=== PATIENT | female | born 1955 | race Caucasian/White ===

== ENCOUNTER 2022-04-13 21:48 | Inpatient (IN) | payer MEDICARE, SELFPAY ==
[2022-04-13 21:49] VITALS: BP 136/100; PULSE 96; RESP 21; TEMP 37.5; O2SAT 97; BMI 30.9
[2022-04-13 23:14] LABS: Microscopic, Urine URINE MICROSCOPIC (MICROSCOPIC)
[2022-04-13 23:34] LABS: Lactic Acid 1.9 mmol/L (0.7-2.1)
[2022-04-13 23:45] LABS: Basophils # 0.2 K/mm3 (0-0.2); Basophils % 0.8 % (0.1-2.0); Eosinophils % 0.1 % (0.1-12.0); Hematocrit 51.9 % (37.0-47.0); Hemoglobin 16.7 g/dL (12.2-16.2); Lymphocytes # 1.5 K/mm3 (0.7-4.5); Lymphocytes % 7.3 % (10-50); Mean Corpuscular HGB Conc 32.3 g/dL (31.8-35.4); Mean Corpuscular Hemoglobin 30.3 pg (27.0-31.2); Mean Corpuscular Volume 93.8 fl (81-99); Mean Platelet Volume 7.6 fl (7.4-10.4); Monocytes # 0.9 K/mm3 (0.1-1.0); Monocytes % 4.2 % (1.7-9.3); Neutrophils % 87.7 % (37.0-80.0); Platelet Count 408 K/mm3 (142-424); Red Blood Count 5.53 M/mm3 (4.20-5.40); Red Cell Distribution Width 14.1 % (11.5-17.5); White Blood Count 20.5 K/mm3 (4.8-10.8)
[2022-04-13 23:46] VITALS: BP 171/86; PULSE 90; O2SAT 93
[2022-04-13 23:48] LABS: Appearance,Urine CLEAR (Clear); Blood, Urine Negative (Negative); Color,Urine YELLOW (Yellow); Glucose,Urine (UA) Negative (Negative); Ketones,Urine 1+ (Negative); Leukocyte Esterase,Urine Negative (Negative); Nitrate,Urine Negative (Negative); Protein,Urine TRACE (Negative); Specific Gravity, Urine >= 1.030 (1.005-1.030); Urobilinogen,Urine 0.2 EU/dl (0.2)
[2022-04-13 23:49] LABS: Alanine Aminotransferase 35 U/L (12-78); Albumin Level 4.7 g/dl (3.5-5.0); Albumin/Globulin Ratio 1.3 (1.1-1.8); Alkaline Phosphatase 123 U/L (38-126); Amylase 68 U/L (30-110); Aspartate Amino Transferase 33 U/L (14-36); Bilirubin,Total 0.7 mg/dl (0.2-1.3); Blood Urea Nitrogen 15 mg/dl (7-17); Calcium 9.6 mg/dl (8.4-10.2); Carbon Dioxide 25 mmol/L (22.0-30.0); Chloride 103 mmol/L (98-107); Creatinine Clearance Estimated 69 mL/min (50-200); Estimated Glomerular Filt Rate 62 ml/min (>60); GFR (African American) 75 ML/MIN (>60); Globulin 3.7 g/dL (1.3-3.2); Glucose 140 mg/dl (74-100); Lipase 72 U/L (23-300); Sodium 138 mmol/L (136-145); Total Protein,Serum 8.4 g/dl (6.3-8.2)
[2022-04-14] VITALS (29 sets, daily range): BP systolic 105–173; BP diastolic 51–85; PULSE 65–89; RESP 14–20; TEMP 36.5–43; O2SAT 89–96; BMI 30.7
--- NOTE | 2022-04-14 | CT_ITS ---
PROCEDURE INFORMATION: Exam: CT Abdomen And Pelvis With Contrast Exam date and time: 04/14/2022 12:07 AM Age: 66 years old Clinical indication: Abdominal pain; Localized; Lower; Prior surgery; Patient HX: HX ovarian cancer; Additional info: Low abd pain w n/v TECHNIQUE: Imaging protocol: Computed tomography of the abdomen and pelvis with contrast. Radiation optimization: All CT scans at this facility use at least one of these dose optimization techniques: automated exposure control; mA and/or kV adjustment per patient size (includes targeted exams where dose is matched to clinical indication); or iterative reconstruction. Contrast material: ISOVUE; Contrast volume: 75 ml; Contrast route: IV; COMPARISON: No relevant prior studies available. FINDINGS: Lungs: Dependent atelectasis and scarring. Heart: There are calcifications within the coronary arteries. Diaphragm: Sliding hiatal hernia. Liver: Liver is diffusely hypoattenuating but without focal lesion. Gallbladder and bile ducts: Normal. No calcified stones. No ductal dilation. Pancreas: Normal. No ductal dilation. Spleen: Normal. No splenomegaly. Adrenal glands: Normal. No mass. Kidneys and ureters: Normal. No hydronephrosis. Stomach and bowel: The vermiform appendix is identified extending from the cecum the right lower quadrant to the midline pelvis where it terminates. The appendix measures approximately 18 mm in greatest cross section and there is extensive surrounding inflammatory stranding, haziness and fluid. No free air to suggest perforation. No focal fluid collection to suggest abscess. There is mucosal thickening within the subjacent loops of bowel within the lower mid abdomen, reactive. Mild diverticulosis of the large bowel. No evidence of diverticulitis. Appendix: The vermiform appendix is identified extending from the cecum the right lower quadrant to the midline pelvis where it terminates. The appendix measures approximately 18 mm in greatest cross section and there is extensive surrounding inflammatory stranding, haziness and fluid. No free air to suggest perforation. No focal fluid collection to suggest abscess. There is mucosal thickening within the subjacent loops of bowel within the lower mid abdomen, reactive Intraperitoneal space: The vermiform appendix is identified extending from the cecum the right lower quadrant to the midline pelvis where it terminates. The appendix measures approximately 18 mm in greatest cross section and there is extensive surrounding inflammatory stranding, haziness and fluid. No free air to suggest perforation. No focal fluid collection to suggest abscess. There is mucosal thickening within the subjacent loops of bowel within the lower mid abdomen, reactive. Vasculature: There are calcifications within the aorta and its branches. Lymph nodes: Unremarkable. No enlarged lymph nodes. Urinary bladder: Unremarkable as visualized. Reproductive: Unremarkable as visualized. Bones/joints: Skeletal structures are negative for evidence of aggressive process or acute fracture. There are mild diffuse degenerative changes. Soft tissues: Unremarkable. IMPRESSION: 1. Acute appendicitis. No evidence of perforation or abscess. 2. Sliding hiatal hernia. 3. Hepatic steatosis. 4. Mild diverticulosis of the large bowel. No evidence of diverticulitis.
[2022-04-14 00:14] LABS: Bilirubin,Urine 1+ (Negative)
[2022-04-14 00:15] LABS: MANUAL DIFFERENTIAL MANUAL DIFFERENTIAL (MANUAL DIFF)
[2022-04-14 00:52] LABS: Bacteria,Urine Trace /lpf
--- NOTE | 2022-04-14 02:05 | PC.NURSE ---
Dr. Banuelos s/w ALVARADOAD
--- NOTE | 2022-04-14 02:08 | PC.NURSE ---
Dr. Berg s/w Dr. Minor
--- NOTE | 2022-04-14 02:08 | HMH.EDNVD ---
ED Disposition Clinical Impression: Acute appendicitis Qualifiers: Acute appendicitis type: unspecified acute appendicitis type Qualified Code(s): K35.80 - Unspecified acute appendicitis Disposition: Admitted As Inpatient Condition on Discharge: Serious Instructions: DI for Acute Abdominal Pain Referrals: Chantelle Hadley APRN [Primary Care Provider] - - Critical Care Critical Care Time: No Attestation: On 04/13/22, the high probability of a clinically significant, sudden or life threatening deterioration of the following system(s) required my full and direct attention, intervention and personal management. The time I documented below is in addition to time spent performing reported procedures but includes the following listed in this critical care notation. Medical Decision Making - Medical Records Medical records reviewed: Yes: I reviewed the patient's medical records. - Catarino Inquiry Pt receiving controlled substance: No Vital Signs: 04/13/22 21:49 04/13/22 23:46 04/14/22 00:00 Temperature 99.5 F Temperature Source Oral Pulse Rate 90 87 Pulse Rate [Right] 96 H Respiratory Rate 21 Blood Pressure 171/86 H 153/56 H Blood Pressure [Right Arm] 136/100 H Blood Pressure Mean 89 Blood Pressure Mean [Right Arm] 112 Blood Pressure Source [Right Arm] Manual Cuff/ Auscultation 02 Sat by Pulse Oximetry 97 93 L 93 L Oxygen Delivery Method Room Air Room Air 04/14/22 00:30 04/14/22 01:00 04/14/22 01:30 Temperature Temperature Source Pulse Rate 85 84 65 Pulse Rate [Right] Respiratory Rate Blood Pressure 141/70 H 130/68 147/64 H Blood Pressure [Right Arm] Blood Pressure Mean 83 87 90 Blood Pressure Mean [Right Arm] Blood Pressure Source [Right Arm] 02 Sat by Pulse Oximetry 95 94 L 94 L Oxygen Delivery Method Room Air 04/14/22 02:00 Temperature Temperature Source Pulse Rate 84 Pulse Rate [Right] Respiratory Rate Blood Pressure 135/76 Blood Pressure [Right Arm] Blood Pressure Mean 100 Blood Pressure Mean [Right Arm] Blood Pressure Source [Right Arm] 02 Sat by Pulse Oximetry 95 Oxygen Delivery Method Room Air - Lab Data Lab results reviewed: Yes: I reviewed the patient's lab results. Lab Results 04/13/22 22:50: Urine Color Yellow, Urine Appearance Clear, Urine pH 6.0, Ur Specific [place] >= 1.030, Urine Protein Trace, Urine Glucose (UA) Negative, Urine Ketones 1+, Urine Blood Negative, Urine Nitrate Negative, Urine Bilirubin 1+ A, Urine Urobilinogen 0.2, Ur Leukocyte Esterase Negative, Urine RBC None, Urine WBC 3-5, Ur Squamous Epith Cells 3-5, Urine Bacteria Trace 04/13/22 23:15: WBC 20.5 H*, RBC 5.53 H, Hgb 16.7 H, Hct 51.9 H, MCV 93.8, MCH 30.3, MCHC 32.3, RDW 14.1, Plt Count 408, MPV 7.6, Neut % (Auto) 87.7 H, Lymph % (Auto) 7.3 L, [place] % (Auto) 4.2, Eos % (Auto) 0.1, Baso % (Auto) 0.8, Neut # (Auto) 18.0 H, Lymph # (Auto) 1.5, [place] # (Auto) 0.9, Eos # (Auto) 0.0, Baso # (Auto) 0.2 04/13/22 23:15: Sodium 138, Potassium 4.0, Chloride 103, Carbon Dioxide 25, Anion Gap 14.0, BUN 15, Creatinine 0.90, Estimated Creat Clear 69, Estimated GFR 62, Est GFR ( Amer) 75, Glucose 140 H, Calcium 9.6, Total Bilirubin 0.7, AST 33, ALT 35, Alkaline Phosphatase 123, C-Reactive Protein Cancelled, Total Protein 8.4 H, Albumin 4.7, Globulin 3.7 H, Albumin/Globulin Ratio 1.3, Amylase 68, Lipase 72, Procalcitonin Cancelled 04/13/22 23:15: Lactate 1.9 Result diagrams: 04/13/22 23:15 04/13/22 23:15 Orders (Tests/Meds): ED MEDICATIONS Generic Name Dose Route Start Last Admin Trade Name Freq PRN Reason Stop Dose Admin Sodium Chloride 1,000 mls @ 999 mls/hr 04/13/22 23:15 04/13/22 23:23 Sod Chlor 0.9% 1000ml Bag IV 04/14/22 00:15 999 mls/hr .Q1H1M GIO Administration Sodium Chloride 1,000 mls @ 999 mls/hr 04/14/22 02:15 04/14/22 02:09 Sod Chlor 0.9% 1000ml Bag IV 04/14/22 03:15 999 mls/hr .Q1H1M GIO Administration Discontinued Medicatio
--- NOTE | 2022-04-14 02:13 | PC.NURSE ---
Dr. Banuelos s/w pt & spouse regarding ct and lab results.
[2022-04-14 02:15] LABS: Coronavirus 19, PCR Not Detected (NotDetected); Influenza A, PCR Not Detected (NotDetected); Influenza B, PCR Not Detected (NotDetected)
--- NOTE | 2022-04-14 02:22 | PC.NURSE ---
supervisor inspection notified on need for bed assignment. Dr. Minor will call house when he is ready for surgery team.
--- NOTE | 2022-04-14 02:23 | PC.NURSE ---
Pt changing into gown and given socks. She took her wedding ring off and gave to , who placed in her red purse. it taking red purse home. Only valuable at bedside is pt's eye glasses. Pt given belongings bag.
--- NOTE | 2022-04-14 02:25 | XR_ITS ---
PROCEDURE INFORMATION: Exam: XR Chest Exam date and time: 04/14/2022 2:38 AM Age: 66 years old Clinical indication: Pre-operative exam; Cardiovascular screening and respiratory screening exam; Additional info: Pre op TECHNIQUE: Imaging protocol: Radiologic exam of the chest. Views: 1 view. COMPARISON: CT ABDOMEN PELVIS W CON 04/14/2022 12:07 AM FINDINGS: Lungs: Atelectasis versus infiltrate right lung base. Pleural spaces: Unremarkable. No pleural effusion. No pneumothorax. Heart/Mediastinum: Unremarkable. No cardiomegaly. Bones/joints: Unremarkable. IMPRESSION: Atelectasis versus infiltrate right lung base. Follow-up recommended to exclude malignancy.
--- NOTE | 2022-04-14 02:33 | ECG_ITS ---
APPROVED REPORT Exam: Resting ECG HR:93 bpm ECG Measurements Heart Rate 93 AXES NH 165 P 49 QRSd 93 QRS 23 QT 355 T 67 QTc 405 Conclusion SINUS RHYTHM LOW QRS VOLTAGE IN PRECORDIAL LEADS [QRS DEFLECTION < 1.0 mV IN CHEST LEADS] NONSPECIFIC ST & T-WAVE ABNORMALITY BORDERLINE ECG UNCONFIRMED REPORT Electronically signed by : Mert Steen MD 04/15/2022 17:58:37
--- NOTE | 2022-04-14 02:37 | PC.NURSE ---
Surgery team paged.
--- NOTE | 2022-04-14 02:55 | PC.NURSE ---
Dr. Minor at bedside
--- NOTE | 2022-04-14 03:07 | HMH.GSHP ---
HPI HPI: Patient is a 66-year-old female. She had developed some abdominal pain about 24 hours prior to presentation. Initially this seemed more in the left upper abdomen and mid abdomen. She had several episodes of vomiting. The pain persisted and became more severe in the lower abdomen. She presented to the emergency department. She underwent evaluation which revealed appreciable leukocytosis. She had a CT scan of the abdomen pelvis performed which revealed findings of vermiform appendix extending from the cecum to the right lower quadrant to the midline pelvis measuring 18 mm and greatest cross-section with extensive surrounding inflammatory stranding, haziness, and fluid. There was mucosal thickening of the adjacent loops of bowel within the lower and mid abdomen. Surgical consultation was obtained. [facility] History I have reviewed the patient's past medical history: Yes Medical History: Reports:: Cancer Denies:: Diabetes Mellitus Type 1, Diabetes Mellitus Type 2, Internal Pacemaker *Have you ever received a pneumonia vaccine?: No *Have you received a flu vaccine this season?: No Other Surgeries: No: Pacemaker Amputation: No Fractures: No - *Social History Last grade of school completed: High school graduate Smoking Status: Former smoker Alcohol Intake: current Alcohol Intake Frequency:: holidays/special occasions only *Occupational Status:: retired Housing: house Household Members: significant other *Travel in the last 8 weeks: None Family Hx:: Non-contributory Review of Systems - Review of Systems Review of systems:: pertinent systems reviewed and negative unless documented below - *Neurologic Denies seizure-like activity Meds Home Medications Medication Instructions Recorded Confirmed Type Amlodipine Besylate 10 mg PO DAILY 04/13/22 04/13/22 History Allergies Allergy/AdvReac Type Severity Reaction Status Date / Time No Known Allergies Allergy Verified 04/13/22 22:59 Exam Vital signs and Labs for Last 24 Hours: Temp Pulse Resp BP Pulse Ox 99.1 F 89 19 170/73 H 96 04/14/22 02:58 04/14/22 02:58 04/14/22 02:58 04/14/22 02:58 04/14/22 02:31 Laboratory Results - last 24 hr 04/13/22 22:50: Urine Color Yellow, Urine Appearance Clear, Urine pH 6.0, Ur Specific [place] >= 1.030, Urine Protein Trace, Urine Glucose (UA) Negative, Urine Ketones 1+, Urine Blood Negative, Urine Nitrate Negative, Urine Bilirubin 1+ A, Urine Urobilinogen 0.2, Ur Leukocyte Esterase Negative, Urine RBC None, Urine WBC 3-5, Ur Squamous Epith Cells 3-5, Urine Bacteria Trace 04/13/22 23:15: WBC 20.5 H*, RBC 5.53 H, Hgb 16.7 H, Hct 51.9 H, MCV 93.8, MCH 30.3, MCHC 32.3, RDW 14.1, Plt Count 408, MPV 7.6, Neut % (Auto) 87.7 H, Lymph % (Auto) 7.3 L, [place] % (Auto) 4.2, Eos % (Auto) 0.1, Baso % (Auto) 0.8, Neut # (Auto) 18.0 H, Lymph # (Auto) 1.5, [place] # (Auto) 0.9, Eos # (Auto) 0.0, Baso # (Auto) 0.2 04/13/22 23:15: Sodium 138, Potassium 4.0, Chloride 103, Carbon Dioxide 25, Anion Gap 14.0, BUN 15, Creatinine 0.90, Estimated Creat Clear 69, Estimated GFR 62, Est GFR ( Amer) 75, Glucose 140 H, Calcium 9.6, Total Bilirubin 0.7, AST 33, ALT 35, Alkaline Phosphatase 123, C-Reactive Protein Cancelled, Total Protein 8.4 H, Albumin 4.7, Globulin 3.7 H, Albumin/Globulin Ratio 1.3, Amylase 68, Lipase 72, Procalcitonin Cancelled 04/13/22 23:15: Lactate 1.9 04/14/22 02:00: SARS-CoV-2 (PCR) Not detected, Influenza A Untype (PCR) Not detected, Influenza Type B (PCR) Not detected I & O for Last 24 hours: Intake & Output 04/11/22 04/12/22 04/13/22 04/14/22 11:59 11:59 11:59 11:59 Intake Total 1500 / 1500 Balance 1500 / 1500 Weight 180 lb - Constitutional no acute distress - *Routine HEENT Exam Head: Present: normocephalic Eye: Present: EOMI, PERRL ENT: Present: mucous membranes moist - *Routine Neck Exam Present: supple. Absent: lymphadenopathy - *Routine Respiratory Exam Present: CTA bilaterally
[2022-04-14 03:10] LABS: Hypochromasia 2+; Lymphocytes % 11 % (10-50); Monocytes % 4 % (2-9); Neutrophils % 85 % (42-76); Platelet Estimate Normal; Stomatocytes 1+; Total Cells Counted 100
--- NOTE | 2022-04-14 03:18 | PC.NURSE ---
Surgery RN & Anesthesia at bedside.
--- NOTE | 2022-04-14 03:52 | HMH.ANESCL ---
[facility] Anesthesia Checklist - Patient Identification Patient Identification: Arm Band - Structural Data Admitted From: Emergency Dept Planned Operative Procedure/s: Lap/ appendectomy Consent for Planned Operative Procedure(s) Verified: Yes - NPO Status Verified Time NPO: 04:00 - Airway Assessment C-Spine Mobility Assessed: Yes TMJ Mobility Assessed: Yes Dentition: Good Dentition - Neurological Assessment Level of Consciousness: Awake Hx Seizures: No Numbness or tingling in extremities: No - Anesthesia Plan Anesthesia Risk discussed: Yes Anesthesia Plan: Verified ASA Class: II (II E) Anesthesia Type: General [facility] History I have reviewed the patient's past medical history: Yes Medical History: Reports:: Cancer, Hypertension Denies:: Diabetes Mellitus Type 1, Diabetes Mellitus Type 2, Internal Pacemaker *Have you ever received a pneumonia vaccine?: No *Have you received a flu vaccine this season?: No Anesthesia experience/problems:: None Other Surgeries: No: Pacemaker Amputation: No Fractures: No - *Social History Last grade of school completed: High school graduate Smoking Status: Former smoker Alcohol Intake: current Alcohol Intake Frequency:: holidays/special occasions only Substance Use Type: denies use *Occupational Status:: retired Housing: house Household Members: significant other *Travel in the last 8 weeks: None Family Hx:: Non-contributory
--- NOTE | 2022-04-14 04:49 | SUR.OPER ---
0438-decision was made to convert to open appendectomy, all counts verified and correct per [facility] and KIRAN Oliva prior to open incision made 044-incision for open appendectomy at this time 044-pt's called and updated at this time
--- NOTE | 2022-04-14 07:07 | HMH.OPNOTE ---
Date of procedure: 04/14/22 Pre-op Diagnosis:: Acute appendicitis Post-op Diagnosis:: Same Procedure performed:: Diagnostic laparoscopy Open appendectomy Completion laparoscopy Surgeon:: Jonathan Minor MD REHAB DEPARTMENT MANAGER:: Daniele Fulton Anesthesia: GETA Estimated blood loss (mL): 20 Operative findings:: Patient had evidence of some established peritonitis. There was purulent fluid in the pelvis and right pericolic gutter. There is some edema and induration of peritoneum and small bowel. Appendix was incredibly densely adherent to the deep abdomen and pelvis. Operative note:: Consent was obtained and patient was taken the operating room. She was given preoperative intravenous antibiotics. In the operating room she was placed in a supine position. General anesthesia was induced via endotracheal tube. Gaytan catheter was placed. Abdomen was prepped and draped in the standard surgical fashion. Subumbilical skin incision was made while performing abdominal wall lift Veress needle was inserted. CO2 pneumoperitoneum was achieved to 15 mmHg. 12 mm optical trocar was inserted at the umbilicus. Abdominal surveillance was carried out. There is some induration edema and erythema of the peritoneum and small bowel. There was cloudy fluid in the pelvis. 5 mm trocar was inserted in the suprapubic location. Fluid was suctioned free. Additional 5 mm trocar was inserted in the right upper abdomen. 5 mm 30 degree laparoscope was inserted. Dissection was carried out near the cecum. There were adhesions to the anterior abdominal wall of the colon. To attempt to locate and isolate the appendix these were taken down using laparoscopic Metzenbaum dissection. Extremely prolonged dissection was carried out and ultimately the base of the appendix was identified. The appendix was grasped with an endoscopic Herman. After additional exhaustive dissection the appendix was unable to be delivered as it was densely adherent deep into the lower mid and right abdominal area. Decision was then made to convert to open procedure. McBurney's type incision was made. Dissection was carried down through subcutaneous tissues and Jw's fascia. The external bleak muscle was opened along the length of its fibers. Muscle-splitting technique was used opening the internal oblique and transversalis muscles. Exposure was rather difficult due to the patient's body habitus and inflammatory response. Ultimately the appendix base was able to be identified. This was slowly dissected free but it was incredibly and and densely adherent into the deep abdomen. Attempts were made for blunt dissection delivery. There was then noted to be an appendicolith. There was concern that there may be a colon injury. Other dissection was carried out slowly dissecting the densely adherent appendix free. The appendiceal artery was clipped with a Hemoclip and sharply divided. The midportion of the appendix then a avulsed from the distal appendix as there is evidence of necrosis. It was felt that this appendicolith which was noted where there was a concern for possible colon injury was likely ruptured appendix. The remainder the appendix was identified and densely adherent into the deep abdomen. It was ultimately able to be delivered. The appendix which was still attached to the cecum was then clamped with a crushing clamp and then doubly ligated at its base which was relatively uninflamed surprisingly with a couple of 2-0 silk sutures. Appendiceal stump was cauterized judiciously. Cecum was returned to the peritoneal cavity. Decision was made to close the McBurney's incision as exposure was quite difficult and proceed with laparoscopic surveillance to rule out colon injury. Peritoneum was closed with a running 2-0 Vicryl. Fascial layers were closed with running 2-0 PDS. Irrigation was performed between layers. Jw's fascia was closed with a running 2-0 Vicryl. Skin was closed with sim. C
--- NOTE | 2022-04-14 07:14 | HMH.ANESI ---
[facility] Anesthesia Record Part I Intake, IV Amount: 2,000 Estimated blood loss (mL): 20 Urine output (mL): 0 Blood Pressure: 121/71 SaO2: 93 Pulse Rate: 83 Respiratory Rate: 20 Temperature: 98.4 F Patient is:: Drowsy, Oral/Nasal airway Stable to PACU at:: 07:09
--- NOTE | 2022-04-14 10:12 | SUR.OPER ---
late entry.... 5149-pt's called and updated at this time that pt was out of surgery and in recovery room
--- NOTE | 2022-04-14 10:28 | HMH.PHAVTE ---
[facility] Pharmacy VTE Monitoring - Patient Demographics Admission date: 04/14/22 Report Date: 04/14/22 Time: 10:28 Allergies/Adverse Reactions: Patient Allergies No Known Allergies Allergy (Verified 04/14/22 04:48) Height: 1.63 m Weight: 81.647 kg Patient Problems: Current Active Problems Acute appendicitis (Acute) - VTE Risk Labs: VTE Related Lab Results Hgb 16.7 g/dL (12.2-16.2) H 04/13/22 23:15 Hct 51.9 % (37.0-47.0) H 04/13/22 23:15 Plt Count 408 K/mm3 (142-424) 04/13/22 23:15 BUN 15 mg/dl (7-17) 04/13/22 23:15 Creatinine 0.90 mg/dl (0.52-1.04) 04/13/22 23:15 Estimated Creat Clear 69 mL/min (50-200) 04/13/22 23:15 Clinical Trial Participant: No - Prophylaxis VTE Prophylaxis Ordered?: Yes Types of VTE Prophylaxis: TEDS Knee High Location of Applied Device: Bilateral Lower Extremeties
[2022-04-14 15:33] LABS: Microscopic,Cath URINE MICROSCOPIC (MICROSCOPIC)
[2022-04-14 15:41] LABS: Appearance,Urine/Cath CLEAR (Clear); Bilirubin,Cath Negative (Negative); Blood, Urine/Cath Negative (Negative); Color,Urine/Cath YELLOW (Yellow); Glucose,Urine/Cath (UA) Negative (Negative); Ketones,Urine/Cath Negative (Negative); Leukocyte Esterase,Cath Negative (Negative); Nitrate,Cath Negative (Negative); PH,Urine/Cath 5.5 (5.0-8.5); Protein,Urine/Cath TRACE (Negative); Specific Gravity, Urine/Cath 1.025 (1.005-1.030); Urobilinogen,Cath 0.2 EU/dl (0.2)
--- NOTE | 2022-04-14 18:26 | PC.NURSE ---
pt A&OX4. 4 abdominal dressing sites, all are CDI. Bowel sounds are present in all 4 quads, no reports of passing flatus this shift, no BMs this shift. pt is NPO except sips and chips and is tolerating that well. pain has been reported a few times and has been relieved with medication. pt is ambulating to and from bathroom with minimal assistance. pt was educated on incentive spirometer use and has demonstrated appropriate use. is at bedside, call light is in reach, bed in lowest position and wheels are locked.
[2022-04-15] VITALS: BP 123/66; PULSE 82; RESP 20; TEMP 37.3; O2SAT 94
[2022-04-15 04:00] VITALS: BP 135/64; PULSE 83; RESP 20; TEMP 36.9; O2SAT 90
[2022-04-15 04:25] VITALS: BMI 30.9
--- NOTE | 2022-04-15 04:43 | PC.NURSE ---
Pt is alert and oriented x4, has ambulated to the bathroom with standby assist, pt states she is passing gas, no BM, good urine output. Bowel sounds active x4. 4 incision cites, dressings CDI. Pt has complained of pain 2 times this shift, treated prn per mar. Pt has been sleeping for a majority of the night, other than using the bathroom. Pt has no new complaints.
[2022-04-15 06:36] LABS: Basophils # 0.1 K/mm3 (0-0.2); Basophils % 0.7 % (0.1-2.0); Eosinophils % 0.1 % (0.1-12.0); Hematocrit 39.4 % (37.0-47.0); Hemoglobin 12.4 g/dL (12.2-16.2); Lymphocytes # 1.7 K/mm3 (0.7-4.5); Mean Corpuscular HGB Conc 31.6 g/dL (31.8-35.4); Mean Corpuscular Hemoglobin 30.8 pg (27.0-31.2); Mean Corpuscular Volume 97.6 fl (81-99); Mean Platelet Volume 8.1 fl (7.4-10.4); Monocytes # 0.6 K/mm3 (0.1-1.0); Monocytes % 4.2 % (1.7-9.3); Neutrophils # 11.8 K/mm3 (1.8-7.8); Platelet Count 297 K/mm3 (142-424); Red Blood Count 4.03 M/mm3 (4.20-5.40); Red Cell Distribution Width 14.1 % (11.5-17.5); White Blood Count 14.2 K/mm3 (4.8-10.8)
[2022-04-15 08:00] VITALS: BP 141/81; PULSE 95; RESP 18; TEMP 37.5; O2SAT 93
--- NOTE | 2022-04-15 08:00 | P.PN_ITS ---
[facility] Anesthesia Record Part II Discharge Time: 07:59 Destination: Intensive Care Unit PACU nurse assessment reviewed?: Yes Patient Condition:: Serious Anesthesia Complications:: None Swallowing reflex intact?: Yes Cyanosis?: No Blood Pressure: 148/85 Pulse Rate: 86 Temperature: 97 F Mental Status: Alert & Oriented Pain level:: 0 Nausea and/or vomitting:: None Intake, IV Amount: 0
[2022-04-15 08:01] VITALS: BP 148/85; PULSE 86; TEMP 36.1
--- NOTE | 2022-04-15 08:06 | HMH.GSPN ---
Subjective Patient reports: no new complaints, flatus, no bowel movement Progress Note: A&P (1) Acute appendicitis Status: Acute Assessment and plan: Overall, doing well status post laparoscopic/[id number] appendectomy. Clear liquid diet Continue antibiotics for now (established peritonitis) Exam Vital signs and Labs for Last 24 Hours: Temp Pulse Resp BP Pulse Ox 97 F L 86 20 148/85 H 90 L 04/15/22 08:01 04/15/22 08:01 04/15/22 04:00 04/15/22 08:01 04/15/22 04:00 Laboratory Results - last 24 hr 04/14/22 03:30: Urine Color Yellow, Urine Appearance Clear, Urine pH 5.5, Ur Specific [place] 1.025, Urine Protein Trace, Urine Glucose (UA) Negative, Urine Ketones Negative, Urine Blood Negative, Urine Nitrate Negative, Urine Bilirubin Negative, Urine Urobilinogen 0.2, Ur Leukocyte Esterase Negative, Urine RBC None, Urine WBC 3-5, Ur Squamous Epith Cells 5-10, Urine Bacteria None 04/15/22 06:16: WBC 14.2 H D, RBC 4.03 L D, Hgb 12.4, Hct 39.4, MCV 97.6, MCH 30.8, MCHC 31.6 L, RDW 14.1, Plt Count 297 D, MPV 8.1, Neut % (Auto) 83.0 H, Lymph % (Auto) 12.0, [place] % (Auto) 4.2, Eos % (Auto) 0.1, Baso % (Auto) 0.7, Neut # (Auto) 11.8 H, Lymph # (Auto) 1.7, [place] # (Auto) 0.6, Eos # (Auto) 0.0, Baso # (Auto) 0.1 I & O for Last 24 hours: Intake & Output 04/12/22 04/13/22 04/14/22 04/15/22 11:59 11:59 11:59 11:59 Intake Total 3500 / 3500 240 / 240 Balance 3500 / 3500 240 / 240 Weight 180 lb 0.013 oz 181 lb 0.909 oz - Constitutional no acute distress - *Routine Respiratory Exam Absent: respiratory distress - *Routine Cardiovascular Exam Absent: tachycardia - *Routine Abdominal Exam Present: soft, tenderness Comments: No cellulitis
[2022-04-15 14:47] VITALS: BMI 30.9
[2022-04-15 16:00] VITALS: BP 157/65; PULSE 87; RESP 16; TEMP 36.9; O2SAT 92
--- NOTE | 2022-04-15 17:06 | PC.NURSE ---
Pt being transported to room 205 by Angelica Wolfe RN and Samir Howe, SRNA
--- NOTE | 2022-04-15 17:48 | PC.NURSE ---
pt A&OX4. ambulating in room independently. reports of pain but is relieved by medication. passing flatus, no BMs this shift, Bowel sounds present in all quads. 1 open abdominal incision, 3 laparoscopic incisions, all are ALEJO and CDI. tolerating clear liquid diet well. call light in reach, bed in lowest position and wheels locked.
[2022-04-15 20:00] VITALS: BP 145/67; PULSE 84; RESP 20; TEMP 37.3; O2SAT 92
[2022-04-16 04:00] VITALS: BP 135/52; PULSE 82; RESP 20; TEMP 36.9; O2SAT 92
[2022-04-16 05:00] VITALS: BMI 39.2
--- NOTE | 2022-04-16 06:34 | PC.NURSE ---
Pt has c/o abd pain 2x t/o shift. PRN pain medication administered. Pt able to walk to BR with standby assist. Call light within reach.
--- NOTE | 2022-04-16 07:21 | HMH.GSPN ---
Subjective Narrative: Patient states that she feels all right. No nausea. Tolerating clear liquids. Progress Note: A&P (1) Acute appendicitis Status: Acute Assessment and Plan for All Diagnoses:: Advance to full liquid diet. Continue IV antibiotics for now. Hopeful discharge soon Exam Vital signs and Labs for Last 24 Hours: Temp Pulse Resp BP Pulse Ox 98.5 F 82 20 135/52 L 92 L 04/16/22 04:00 04/16/22 04:00 04/16/22 04:00 04/16/22 04:00 04/16/22 04:00 I & O for Last 24 hours: Intake & Output 04/13/22 04/14/22 04/15/22 04/16/22 11:59 11:59 11:59 11:59 Intake Total 3500 / 3500 720 / 720 3772 / 3772 Balance 3500 / 3500 720 / 720 3772 / 3772 Weight 180 lb 0.013 oz 181 lb 0.909 oz 229 lb 12.8 oz Microbiology Reports for the Last 24 Hours: Microbiology 04/13/22 23:15 Blood Blood Culture - Preliminary NO GROWTH AFTER 48 HOURS - *Routine Abdominal Exam Present: soft Comments: Some bruising around all incisions
[2022-04-16 07:49] LABS: Basophils # 0.2 K/mm3 (0-0.2); Basophils % 1.3 % (0.1-2.0); Eosinophils # 0.1 K/mm3 (0.0-0.4); Hematocrit 37.9 % (37.0-47.0); Hemoglobin 11.8 g/dL (12.2-16.2); Lymphocytes # 2.2 K/mm3 (0.7-4.5); Lymphocytes % 16.5 % (10-50); Mean Corpuscular HGB Conc 31.2 g/dL (31.8-35.4); Mean Corpuscular Hemoglobin 30.2 pg (27.0-31.2); Mean Corpuscular Volume 96.6 fl (81-99); Monocytes # 0.6 K/mm3 (0.1-1.0); Monocytes % 4.7 % (1.7-9.3); Neutrophils # 10.2 K/mm3 (1.8-7.8); Neutrophils % 76.5 % (37.0-80.0); Platelet Count 321 K/mm3 (142-424); Red Blood Count 3.92 M/mm3 (4.20-5.40); White Blood Count 13.3 K/mm3 (4.8-10.8)
[2022-04-16 08:00] VITALS: BP 151/79; PULSE 81; RESP 17; TEMP 37.2; O2SAT 94
--- NOTE | 2022-04-16 10:26 | PC.NURSE ---
Rounded on pt and cleaned and straightened room. Pt up in chair and no needs voiced at this time.
--- NOTE | 2022-04-16 13:31 | PC.NURSE ---
rounded on patient. offered to assist her up to chair for lunch which she refused stating she had just gotten back to bed. stated she had no concerns or questions i feel like i have been here a while so i have a good understanding. no needs voiced encouraged her to ring out with any needs or questions.
[2022-04-16 15:34] VITALS: BP 155/68; PULSE 78; RESP 16; TEMP 37.6; O2SAT 95
--- NOTE | 2022-04-16 15:38 | PC.NURSE ---
Pt is A/OX4. She has been up between the chair and bed all day. Placed new IV this morning on pt she tolerated well. She was changed from clear liquid diet to full liquid diet and has tolerated well. No change since last assessment.
[2022-04-16 20:00] VITALS: BP 166/90; PULSE 84; RESP 16; TEMP 36.8; O2SAT 95
[2022-04-17 04:00] VITALS: BP 176/84; PULSE 88; RESP 16; TEMP 37.1; O2SAT 95
--- NOTE | 2022-04-17 04:13 | PC.NURSE ---
Patient has been A&o x4 this shift. Patient has expressed abd pain 2x thus far in shift medicated patient per mar. Patient has been ambulatory to the restroom with stand by assist. Patients abd incisions are open to air and noted to be CDI.
[2022-04-17 05:00] VITALS: BMI 39.6
[2022-04-17 06:41] LABS: Chloride 107 mmol/L (98-107); Sodium 140 mmol/L (136-145)
[2022-04-17 06:42] LABS: Potassium 3.2 mmoL/L (3.5-5.1)
[2022-04-17 06:45] LABS: Anion Gap 9.2 mEq/L (5-15); Basophils # 0.2 K/mm3 (0-0.2); Blood Urea Nitrogen 5 mg/dl (7-17); Calcium 8.6 mg/dl (8.4-10.2); Carbon Dioxide 27 mmol/L (22.0-30.0); Creatinine Clearance Estimated 90 mL/min (50-200); Eosinophils # 0.2 K/mm3 (0.0-0.4); Eosinophils % 1.8 % (0.1-12.0); Estimated Glomerular Filt Rate 83 ml/min (>60); GFR (African American) 101 ML/MIN (>60); Glucose 123 mg/dl (74-100); Hematocrit 36.4 % (37.0-47.0); Hemoglobin 11.6 g/dL (12.2-16.2); Lymphocytes % 18.4 % (10-50); Mean Corpuscular HGB Conc 31.9 g/dL (31.8-35.4); Mean Corpuscular Hemoglobin 29.7 pg (27.0-31.2); Mean Corpuscular Volume 93.3 fl (81-99); Mean Platelet Volume 7.9 fl (7.4-10.4); Monocytes # 0.6 K/mm3 (0.1-1.0); Monocytes % 5.2 % (1.7-9.3); Neutrophils # 8.1 K/mm3 (1.8-7.8); Neutrophils % 72.6 % (37.0-80.0); Platelet Count 369 K/mm3 (142-424); Red Cell Distribution Width 13.8 % (11.5-17.5); White Blood Count 11.1 K/mm3 (4.8-10.8)
[2022-04-17 08:00] VITALS: BP 142/83; PULSE 78; RESP 16; TEMP 36.8; O2SAT 95
--- NOTE | 2022-04-17 10:29 | P.PN_ITS ---
Subjective Narrative: Patient states that she feels better. Less soreness. Progress Note: A&P (1) Acute appendicitis Status: Acute Assessment and Plan for All Diagnoses:: Discharge home Exam Vital signs and Labs for Last 24 Hours: Temp Pulse Resp BP Pulse Ox 98.2 F 78 16 142/83 H 95 04/17/22 08:00 04/17/22 08:00 04/17/22 08:00 04/17/22 08:00 04/17/22 08:00 Laboratory Results - last 24 hr 04/17/22 06:10: Sodium 140, Potassium 3.2 L, Chloride 107, Carbon Dioxide 27, Anion Gap 9.2, BUN 5 L, Creatinine 0.70, Estimated Creat Clear 90, Estimated GFR 83, Est GFR ( Amer) 101, Glucose 123 H, Calcium 8.6 04/17/22 06:10: WBC 11.1 H, RBC 3.90 L, Hgb 11.6 L, Hct 36.4 L, MCV 93.3, MCH 29.7, MCHC 31.9, RDW 13.8, Plt Count 369, MPV 7.9, Neut % (Auto) 72.6, Lymph % (Auto) 18.4, [place] % (Auto) 5.2, Eos % (Auto) 1.8, Baso % (Auto) 2.0, Neut # (Auto) 8.1 H, Lymph # (Auto) 2.0, [place] # (Auto) 0.6, Eos # (Auto) 0.2, Baso # (Auto) 0.2 I & O for Last 24 hours: Intake & Output 04/14/22 04/15/22 04/16/22 04/17/22 11:59 11:59 11:59 11:59 Intake Total 3500 / 3500 720 / 720 4512 / 4512 2872 / 2872 Balance 3500 / 3500 720 / 720 4512 / 4512 2872 / 2872 Weight 180 lb 0.013 oz 181 lb 0.909 oz 229 lb 12.8 oz 232 lb 6.4 oz - *Routine Abdominal Exam Present: soft Comments: Incisions clean and intact. Some moderate bruising around all incisions.
--- NOTE | 2022-04-17 10:34 | HMH.DCSUM ---
General - General Admission date:: 04/14/22 Discharge date: 04/17/22 HPI HPI: Patient is a 66-year-old female. She had developed some abdominal pain about 24 hours prior to presentation. Initially this seemed more in the left upper abdomen and mid abdomen. She had several episodes of vomiting. The pain persisted and became more severe in the lower abdomen. She presented to the emergency department. She underwent evaluation which revealed appreciable leukocytosis. She had a CT scan of the abdomen pelvis performed which revealed findings of vermiform appendix extending from the cecum to the right lower quadrant to the midline pelvis measuring 18 mm and greatest cross-section with extensive surrounding inflammatory stranding, haziness, and fluid. There was mucosal thickening of the adjacent loops of bowel within the lower and mid abdomen. Surgical consultation was obtained. Hospital Course Hospital Course: Patient was seen and examined in the emergency department and taken emergently to the operating room. She underwent diagnostic laparoscopy. She was found to have cloudy turbid fluid which was somewhat purulent. There was evidence of established peritonitis. She had edema and induration of the peritoneum and small bowel. Appendix was incredibly densely adherent into the deep abdomen and pelvis. She underwent diagnostic laparoscopy. The appendix could not be removed laparoscopically and she had conversion to open procedure. Even at this time it was difficult to free the appendix from its deep adhesions. It was actually removed in a piecemeal fashion as there was a large appendicolith and necrosis of the midportion of the appendix with the appendix markedly thickened at its tip. Please see operative dictation for complete details. She was admitted postoperatively for convalescence. Patient remained on Unasyn perioperatively. She was limited initially to sips with ice chips. Her white blood cell count was appreciably elevated on admission and slowly improved with IV antibiotics. On postoperative day #2 she was given a clear liquid diet. On postoperative day #3 her white blood cell count continue to improve to 13,000. She was continued on Unasyn. She was advanced to a full liquid diet which she tolerated without difficulty. Her soreness improved. Overall she felt better. By postoperative day #4 white blood cell count had improved to 11,000. Arrangements were made for discharge home at this time on continuation of oral antibiotics with close outpatient follow-up. On examination she had some bruising around all trocar sites and her incision but no evidence of any infection. Objective Vital signs: Temp Pulse Resp BP Pulse Ox 98.2 F 78 16 142/83 H 95 04/17/22 08:00 04/17/22 08:00 04/17/22 08:00 04/17/22 08:00 04/17/22 08:00 Results Labs on day of discharge: Labs from last 24 hours 04/17/22 04/17/22 06:10 06:10 WBC 11.1 H RBC 3.90 L Hgb 11.6 L Hct 36.4 L MCV 93.3 MCH 29.7 MCHC 31.9 RDW 13.8 Plt Count 369 MPV 7.9 Neut % (Auto) 72.6 Lymph % (Auto) 18.4 [place] % (Auto) 5.2 Eos % (Auto) 1.8 Baso % (Auto) 2.0 Neut # (Auto) 8.1 H Lymph # (Auto) 2.0 [place] # (Auto) 0.6 Eos # (Auto) 0.2 Baso # (Auto) 0.2 Sodium 140 Potassium 3.2 L Chloride 107 Carbon Dioxide 27 Anion Gap 9.2 BUN 5 L Creatinine 0.70 Estimated Creat Clear 90 Estimated GFR 83 Est GFR ( Amer) 101 Glucose 123 H Calcium 8.6 Preliminary micro results at discharge 04/13/22 23:15 Blood Culture - Preliminary Blood NO GROWTH AFTER 48 HOURS DS: Diagnosis - Discharge Diagnosis (1) Acute appendicitis Status: Acute Discharge Plan - Patient Discharge Instructions ACTIVITY: No heavy lifting DIET: advance to your usual diet Patient Instructions: Appendicitis, Appendectomy -- Open Surgery, DI for Surgical Site Infection - Follow
--- NOTE | 2022-04-17 11:04 | PC.NURSE ---
Spoke with PT she stated that her will be here at noon, and wants to be ready by then.
--- NOTE | 2022-04-20 15:01 | CARE MANAGER ---
Contacted patient related to hospital discharge. Patient states she is still having some pain, but it is much better. She is taking her antibiotics. She is quijano of her follow up appointments and denies any questions at this time. KIRAN Patel
== END 2022-04-17 12:15 | disposition home or self-care (01) | DRG 340 ==
LOC: ER 23:12 → ICU 04-14 02:27 → SDC 04-14 03:19 → 2ND 04-15 16:49
PROVIDERS: Admitting Provider Surgery; Emergency Provider Emergency Medicine; PCP Nurse Practitioner Family; Visit Provider Surgery
PROC: 0DTJ4ZZ Resection of Appendix, Percutaneous Endoscopic Approach (ICD-10-PCS; CPT 44970; principal; 2022-04-14 03:00)
DX: K35.33 Acute appendicitis with perforation, localized peritonitis, and gangrene, with abscess (principal); Z53.31 Laparoscopic surgical procedure converted to open procedure; Z20.822 Contact with and (suspected) exposure to COVID-19; Z85.9 Personal history of malignant neoplasm, unspecified
CPT/HCPCS: 44950; 36415; 71045; 74177; 80048; 80053; 81001; 82150; 83605; 83690; 84145; 85007; 85025; 86140; 87040; 88304; 93005; 99285; C9803; J0131; J0330; J2405; Q9967; U0003; U0005

== ENCOUNTER → 2023-01-12 09:08 | Outpatient (CLI) | payer MEDICARE, SELFPAY ==
--- NOTE | 2023-01-12 09:12 | XR_ITS ---
FINAL REPORT TECHNIQUE: Bone densitometry calculations of the lumbar spine and left hip were obtained. CLINICAL HISTORY: . post menopausal screening FINDINGS: DEXA BONE DENSITY AXIAL SKELETON Using L1-4, the bone mineral density of the spine is 0.957 g/cm2, corresponding to T-score of -0.8. Using the left hip, the bone mineral density of the femoral neck is 0.848 g/cm2, corresponding to a T-score of 0.0. NOTE: T-score: Standard deviation compared with peak bone mass of young adult mean. *Following the recommendations of the International Society of Bone densitometry, classification of hip BMD is based on the lower of two T-scores; total hip or femoral neck. IMPRESSION: Normal bone mineral density of the lumbar spine and hip. FRAX not reported because: Some T-score for Spine Total or hip Total or femoral neck at or above -1.0. Reviewed, Interpreted and Dictated by Jonathan Rogers III, MD Transcribed by Rosa Grant Authenticated and [facility]
--- NOTE | 2023-01-12 09:13 | MM_ITS ---
PROCEDURE INFORMATION: Exam: MG Bilateral Screening 3D Mammography Exam date and time: 01/12/2023 9:07 AM Age: 67 years old Clinical indication: Screening examination personal history of ovarian cancer. No family history of breast cancer. TECHNIQUE: Imaging protocol: Bilateral Screening tomosynthesis and 2D mammography including computer-aided detection (CAD) when performed. COMPARISON: No relevant prior studies available.If prior mammograms are provided, I am happy to add an addendum. FINDINGS: MAMMOGRAPHY: Breast composition: There are scattered areas of fibroglandular density. Mass: No suspicious mass. Architectural distortion: None. Calcifications: No suspicious calcifications. Asymmetric density: None. Skin thickening: None. Axillary adenopathy: None. IMPRESSION: No mammographic evidence of malignancy. Annual screening is recommended unless otherwise clinically indicated. ASSESSMENT: BI-RADS Category 1: Negative
== END ==
PROVIDERS: PCP Nurse Practitioner Family; Visit Provider Internal Medicine Adolescent Medicine
DX: Z78.0 Asymptomatic menopausal state (principal); Z13.820 Encounter for screening for osteoporosis; Z12.31 Encounter for screening mammogram for malignant neoplasm of breast
CPT/HCPCS: 77063; 77067; 77080

== ENCOUNTER → 2023-01-22 13:21 | Outpatient (CLI) | payer MEDICARE, SELFPAY ==
--- NOTE | 2023-01-22 | XR_ITS ---
FINAL REPORT CLINICAL HISTORY: .arthritis FINDINGS: Left foot Two views were obtained. There is no acute fracture or dislocation. There are moderate to severe degenerative changes of the 1st metatarsophalangeal joint. Mild degenerative changes are seen elsewhere. Note is made of calcaneal spurs. There is chronic appearing irregularity at the proximal 5th metatarsal. IMPRESSION: Degenerative and chronic appearing findings. Reviewed, Interpreted and Dictated by Jonathan Rogers III, MD Transcribed by Leesa Steven Authenticated and [facility]
--- NOTE | 2023-01-22 13:27 | XR_ITS ---
FINAL REPORT CLINICAL HISTORY: OTHER FATIGUE COMPARISON: 04/14/2022 FINDINGS: TWO-VIEW CHEST The heart size is normal. The mediastinum is normal. The lungs are clear. There is no pneumothorax. IMPRESSION: No acute cardiopulmonary process. Findings are unchanged from previous. Reviewed, Interpreted and Dictated by Jonathan Rogers III, MD Transcribed by Leesa Steven Authenticated and [facility]
--- NOTE | 2023-01-22 13:29 | XR_ITS ---
FINAL REPORT CLINICAL HISTORY: .arthritis FINDINGS: Right hand Two views were obtained. There is no acute fracture or dislocation. There are severe degenerative changes of the 1st carpometacarpal joint. Mild and moderate degenerative changes are seen elsewhere in the hand and wrist. IMPRESSION: Degenerative changes as above. Reviewed, Interpreted and Dictated by Jonathan Rogers III, MD Transcribed by Leesa Steven Authenticated and [facility]
--- NOTE | 2023-01-22 13:29 | XR_ITS ---
FINAL REPORT CLINICAL HISTORY: .arthritis FINDINGS: Right hand Two views were obtained. There is no acute fracture or dislocation. There are moderate degenerative changes of the 1st carpometacarpal joint. Mild and moderate degenerative changes are seen elsewhere in the hand and wrist. IMPRESSION: Degenerative changes as above. Reviewed, Interpreted and Dictated by Jonathan Rogers III, MD Transcribed by Leesa Steven Authenticated and [facility]
--- NOTE | 2023-01-22 13:29 | XR_ITS ---
FINAL REPORT CLINICAL HISTORY: ARTHRITIS FINDINGS: Right foot Two views were obtained. There is no acute fracture or dislocation. Mild degenerative changes are present. Note is made of calcaneal spurs. There is chronic calcification adjacent to the proximal 5th metatarsal. There is a small calcification inferior to the plantar calcaneal spur. IMPRESSION: Degenerative and chronic appearing findings. Reviewed, Interpreted and Dictated by Jonathan Rogers III, MD Transcribed by Leesa Steven Authenticated and [facility]
== END ==
PROVIDERS: PCP Nurse Practitioner Family; Visit Provider Internal Medicine
DX: L40.50 Arthropathic psoriasis, unspecified (principal); R53.83 Other fatigue
CPT/HCPCS: 71046; 73120; 73620

== ENCOUNTER 2024-02-18 16:11 | Outpatient (CLI) | payer MEDICARE, SELFPAY ==
--- OUTSIDE RECORDS SUMMARY | 2024-02-18 16:14 | XMS_ITS | Patient Health Record ---
Author Name Unknown Organization [employer] [facility] Address [address] [facility] [address] [place] [address] Care Team Providers Care Acid Loader Name Role Phone Bindu Vasquez Primary Care Provider BINDU VASQUEZ Unavailable Unavaila Denise Aleman Unavailable [phone] ALLERGIES Allergen (clinical drug ingredient) Drug/Non Drug Allergy documented on EMR Reaction Allergy Type Onset Date Status Contrast for MRI (uncoded) upset stomach/vomiting Allergy Active REASON FOR REFERRAL No Information MEDICATIONS Medication SIG (Take, Route, Frequency, Duration) Notes Start Date End Date Status Simponi Aria 50 mg/4 mL as directed intr avenously every 8 weeks Active meloxicam 15 mg 1 tab(s) orally once a day Active multivitamin Multiple Vitamins 1 tab(s) orally once a day A ctive amLODIPine 10 mg 1 tab(s) orally once a day for 90 days Active SOCIAL HISTORY Tobacco Use: Social History Observation Description Date Details (start date - stop date) Never Smoker NA - NA Sex Assigned At : Social History Observation Description Sex Assigned At Unknown Smoking: Question Answer Notes Are you a: nonsmoker PROBLEMS Problem Type ICD Code Onset Dates Problem Status W/U Status Risk SNOMED Code Notes Problem HTN (hypertension), benign (I10) Active confirmed 64596942 Problem BMI 39.0-39.9,adult (Z68.39) Active confirmed 542778542 Problem Psoriatic arthritis (L40.50) Active confirmed 770893486 Problem Screening for osteoporosis (Z13.820) Active confirmed Screening for osteoporosis (833607858) Problem Severe obesity (BMI >= 40) (E66.01) Active confirmed 171664266 Problem History of ovarian cancer (Z85.43) Active confirmed 208552384 Problem Elevated hemoglobin (D58.2) Active confirmed 514086865 Problem Screening breast examination (Z12.31) Active confirmed Examination of breast (procedure) (07441353) VITAL SIGNS Heart Rate 88 /min 01/07/2024 Temperature 98.0 degrees Fahrenheit 01/07/2024 Blood pressure diastolic 82 mm Hg 01/07/2024 Height 64 in in 01/07/2024 Blood pressure systolic 136 mm Hg 01/07/2024 Weight 248 lbs 01/07/2024 BMI 42.56 kg/m2 01/07/2024 Encounters Encounter Location Date Provider Diagnosis [address] [address] 01/07/2024 Denise Hernández Severe obesity (BMI >= 40) E66.01 ; Encounter for Medicare annual wellness exam Z00.00 ; Prediabetes R73.03 ; HTN (hypertension), benign I10 ; History of ovarian cancer Z85.43 ; Psoriatic arthritis L40.50 ; Fatigue, unspecified type R53.83 and Elevated hemoglobin D58.2 ASSESSMENTS Encounter Date Diagnosis Assessment Notes Treatment Notes Treatment Clinical Notes 01/07/2024 Encounter for Medicare annual wellness exam (ICD-10 - Z00.00) PVM UTD. Takes flu shot annually. Plans to get pneumonia vaccine at pharmacy 01/07/2024 Severe obesity (BMI >= 40) (ICD-10 - E66.01) BMI, diet, weight loss, tracking calories discussed. 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 Keep FU with rheumatology 01/07/2024 Fatigue, unspecified type (ICD-10 - R53.83) Likely related to chronic pain issues, sedentary lifestyle, will check labs 01/07/2024 Elevated hemoglobin (ICD-10 - D58.2) Appears hemoconcentrated. HBG 15 last year. Will recheck with fasting labs PLAN OF TREATMENT Pending Test Test Name Order Date M-Complete Blood Count Auto Diff 024 M-Erythrocyte Sedimentation Rate 024 M-Comprehensive Metabolic Panel 01/07/20 24 M-Hemoglobin A1C 01/07/2024 K-Z-Wddirjru Protein 01/07/2024 M-Lipid Panel 01/07/2024 M-Thyroid Stimulating Hormone 01/07/2024 Insurance Providers Payer Name Payer Address Payer Phone Subscriber Number Group Number Insured Name Patient Relationship to Insured Coverage Start Date Coverage End Date [employer] [address] [address] [place] [address] [id number] Heydi Sequeira Self - patient is the insured MEDICAL (GENERAL) HISTORY Medical History History ICD Code Psoriatic arthritis HTN Ovarian Cancer Surgical History Surgery Date(Month/Year) Complete hysterectomy Appendectomy 2021 Hospitalization History Reason Date(Month/Year) For surgeries as above
[2024-02-18 16:41] LABS: Basophils # 0.1 K/mm3 (0-0.2); Basophils % 0.9 % (0.1-2.0); Eosinophils # 0.2 K/mm3 (0.0-0.4); Eosinophils % 2.3 % (0.1-12.0); Hematocrit 47.5 % (37.0-47.0); Hemoglobin 15.5 g/dL (12.2-16.2); Lymphocytes # 3.2 K/mm3 (0.7-4.5); Lymphocytes % 34.9 % (10-50); Mean Corpuscular HGB Conc 32.6 g/dL (31.8-35.4); Mean Corpuscular Volume 95.3 fl (81-99); Mean Platelet Volume 7.9 fl (7.4-10.4); Monocytes # 0.5 K/mm3 (0.1-1.0); Monocytes % 5.4 % (1.7-9.3); Neutrophils # 5.2 K/mm3 (1.8-7.8); Neutrophils % 56.4 % (37.0-80.0); Platelet Count 313 K/mm3 (142-424); Red Blood Count 4.98 M/mm3 (4.20-5.40); Red Cell Distribution Width 14.2 % (11.5-17.5); White Blood Count 9.2 K/mm3 (4.8-10.8)
[2024-02-18 17:08] LABS: Erythrocyte Sedimentation Rate 13 mm/hr (0-30)
[2024-02-18 17:24] LABS: Hemoglobin A1C 5.9 % (4.0-6.0)
[2024-02-18 17:45] LABS: Alanine Aminotransferase 70 U/L (12-78); Albumin Level 4.6 g/dl (3.5-5.0); Albumin/Globulin Ratio 1.4 (1.1-1.8); Alkaline Phosphatase 106 U/L (38-126); Anion Gap 15.2 mEq/L (5-15); Aspartate Amino Transferase 63 U/L (14-36); Bilirubin,Total 0.6 mg/dl (0.2-1.3); Blood Urea Nitrogen 17 mg/dl (7-17); Calcium 9.5 mg/dl (8.4-10.2); Carbon Dioxide 26 mmol/L (22.0-30.0); Chloride 105 mmol/L (98-107); Chol/HDL Ratio 3.7 (1-3.5); Cholesterol 223 mg/dl (140-200); Estimated Glomerular Filt Rate 62 ml/min (>60); GFR (African American) 75 ML/MIN (>60); Globulin 3.2 g/dL (1.3-3.2); Glucose 105 mg/dl (74-100); HDL Cholesterol 61 mg/dl (40-60); Potassium 4.2 mmoL/L (3.5-5.1); Sodium 142 mmol/L (136-145); Total Protein,Serum 7.8 g/dl (6.3-8.2); Triglycerides 179 mg/dl (30-150); VLDL Cholesterol 36 mg/dL (0-40)
[2024-02-18 17:56] LABS: C-Reactive Protein 7.3 mg/L (0-4); Direct LDL Cholesterol 126.31 mg/dL (100-129)
== END 2024-02-18 23:59 | disposition home or self-care (01) ==
PROVIDERS: PCP Nurse Practitioner Family; Visit Provider Nurse Practitioner Family
DX: I10 Essential (primary) hypertension (principal); R73.03 Prediabetes; L40.50 Arthropathic psoriasis, unspecified; R53.83 Other fatigue
CPT/HCPCS: 36415; 80053; 80061; 83036; 84443; 85025; 85651; 86140

== ENCOUNTER 2024-06-02 13:18 | Outpatient (CLI) | payer MEDICARE, SELFPAY ==
--- NOTE | 2024-06-02 13:35 | XR_ITS ---
FINAL REPORT CLINICAL HISTORY: PAIN COMPARISON: 01/22/2023 FINDINGS: RIGHT HAND Three views demonstrate no acute fracture or dislocation. There is moderately advanced DIP and PIP joint space narrowing with hypertrophic changes consistent with osteoarthritis. There are advanced hypertrophic changes of the basilar joint. The soft tissues are unremarkable. IMPRESSION: Advanced changes of osteoarthritis without acute bony abnormality. Reviewed, Interpreted and Dictated by Sigifredo Laboy MD Transcribed by Taylor Paul Authenticated and [facility]
[2024-06-02 14:00] LABS: Basophils # 0.1 K/mm3 (0-0.2); Basophils % 1.1 % (0.1-2.0); Eosinophils # 0.2 K/mm3 (0.0-0.4); Eosinophils % 2.1 % (0.1-12.0); Hematocrit 49.2 % (37.0-47.0); Lymphocytes # 3.9 K/mm3 (0.7-4.5); Lymphocytes % 41.7 % (10-50); Mean Corpuscular HGB Conc 32.5 g/dL (31.8-35.4); Mean Corpuscular Hemoglobin 31.1 pg (27.0-31.2); Mean Corpuscular Volume 95.5 fl (81-99); Mean Platelet Volume 7.6 fl (7.4-10.4); Monocytes # 0.5 K/mm3 (0.1-1.0); Monocytes % 5.8 % (1.7-9.3); Neutrophils # 4.6 K/mm3 (1.8-7.8); Neutrophils % 49.2 % (37.0-80.0); Platelet Count 324 K/mm3 (142-424); Red Blood Count 5.15 M/mm3 (4.20-5.40); White Blood Count 9.3 K/mm3 (4.8-10.8)
[2024-06-02 14:21] LABS: Alanine Aminotransferase 53 U/L (12-78); Albumin Level 4.6 g/dl (3.5-5.0); Albumin/Globulin Ratio 1.4 (1.1-1.8); Alkaline Phosphatase 99 U/L (38-126); Anion Gap 11.5 mEq/L (5-15); Aspartate Amino Transferase 48 U/L (14-36); Bilirubin,Total 0.5 mg/dl (0.2-1.3); Blood Urea Nitrogen 16 mg/dl (7-17); Calcium 9.4 mg/dl (8.4-10.2); Carbon Dioxide 25 mmol/L (22.0-30.0); Chloride 109 mmol/L (98-107); Estimated Glomerular Filt Rate 71 ml/min (>60); GFR (African American) 86 ML/MIN (>60); Globulin 3.4 g/dL (1.3-3.2); Glucose 89 mg/dl (74-100); Potassium 4.5 mmoL/L (3.5-5.1); Sodium 141 mmol/L (136-145)
[2024-06-02 14:26] LABS: C-Reactive Protein 10.8 mg/L (0-4)
[2024-06-02 15:06] LABS: Erythrocyte Sedimentation Rate 40 mm/hr (0-30)
== END 2024-06-02 23:59 | disposition home or self-care (01) ==
LOC: LAB 13:20
PROVIDERS: Nurse Practitioner Family; PCP Internal Medicine Adolescent Medicine; Visit Provider Nurse Practitioner Family
DX: L40.50 Arthropathic psoriasis, unspecified (principal); M79.641 Pain in right hand; D84.821 Immunodeficiency due to drugs; Z79.899 Other long term (current) drug therapy
CPT/HCPCS: 36415; 73130; 80053; 85025; 85651; 86140

== ENCOUNTER 2024-10-02 14:57 | Outpatient (CLI) | payer MEDICARE, SELFPAY ==
[2024-10-02 15:37] LABS: Basophils # 0.1 K/mm3 (0-0.2); Basophils % 0.6 % (0.1-2.0); Eosinophils # 0.2 K/mm3 (0.0-0.4); Eosinophils % 2.5 % (0.1-12.0); Hematocrit 46.1 % (37.0-47.0); Hemoglobin 15.9 g/dL (12.2-16.2); Lymphocytes # 3.5 K/mm3 (0.7-4.5); Lymphocytes % 36.4 % (10-50); Mean Corpuscular HGB Conc 34.5 g/dL (31.8-35.4); Mean Corpuscular Hemoglobin 30.9 pg (27.0-31.2); Mean Corpuscular Volume 89.5 fl (81-99); Mean Platelet Volume 9.6 fl (7.4-10.4); Monocytes # 0.7 K/mm3 (0.1-1.0); Monocytes % 7.7 % (1.7-9.3); Neutrophils % 52.6 % (37.0-80.0); Platelet Count 366 K/mm3 (142-424); Red Blood Count 5.15 M/mm3 (4.20-5.40); Red Cell Distribution Width 12.7 % (11.5-17.5); White Blood Count 9.5 K/mm3 (4.8-10.8)
[2024-10-02 16:11] LABS: Amphetamine/Metha Screen,Urine Negative ng/ml (<1000); Barbiturates Screen,Urine Negative ng/ml (<200)
[2024-10-02 16:12] LABS: Benzodiazepines Screen,Urine Negative ng/ml (<200)
[2024-10-02 16:13] LABS: Cannabinoid Screen,Urine Positive ng/ml (<50); Cocaine Screen,Urine Negative ng/ml (<300)
[2024-10-02 16:14] LABS: Methadone Screen,Urine Negative ng/ml (<300)
[2024-10-02 16:15] LABS: Opiate Screen,Urine Negative ng/ml (<300); Phencyclidine Screen,Urine Negative ng/ml (<25)
[2024-10-02 16:16] LABS: Alanine Aminotransferase 56 U/L (12-78); Albumin Level 4.8 g/dl (3.5-5.0); Albumin/Globulin Ratio 1.6 (1.1-1.8); Aspartate Amino Transferase 58 U/L (14-36); Blood Urea Nitrogen 15 mg/dl (7-17); Carbon Dioxide 25 mmol/L (22.0-30.0); Chloride 107 mmol/L (98-107); Estimated Glomerular Filt Rate 62 ml/min (>60); GFR (African American) 75 ML/MIN (>60); Sodium 141 mmol/L (136-145); Total Protein,Serum 7.8 g/dl (6.3-8.2)
[2024-10-02 16:18] LABS: Alkaline Phosphatase 120 U/L (38-126); Anion Gap 13.3 mEq/L (5-15); Bilirubin,Total 0.6 mg/dl (0.2-1.3); Calcium 9.8 mg/dl (8.4-10.2); Glucose 84 mg/dl (74-100); Potassium 4.3 mmoL/L (3.5-5.1)
[2024-10-02 16:22] LABS: C-Reactive Protein 9.2 mg/L (0-4)
[2024-10-02 17:37] LABS: Erythrocyte Sedimentation Rate 12 mm/hr (0-30)
== END 2024-10-02 23:59 | disposition home or self-care (01) ==
LOC: LAB 14:59
PROVIDERS: PCP Internal Medicine Adolescent Medicine; Visit Provider Nurse Practitioner Family
DX: Z51.81 Encounter for therapeutic drug level monitoring (principal); L40.50 Arthropathic psoriasis, unspecified
CPT/HCPCS: 36415; 80053; 80307; 85025; 85651; 86140